=== PATIENT | female | born 1965 | race Caucasian/White ===

== ENCOUNTER 2022-09-13 08:00 | Outpatient (CLI) | payer OTHER, SELFPAY ==
--- NOTE | ~2022-09-13 | MM_ITS ---
EXAMINATION: [place] [facility] [place] HISTORY: Screening mammogram TECHNIQUE: Craniocaudal and mediolateral oblique 3-D tomosynthesis images were obtained and synthetic 2-D images were generated. CAD analysis was submitted and interpreted. COMPARISON: 02/26/2019, 07/11/2018 BREAST PARENCHYMAL COMPOSITION: There are scattered areas of fibroglandular density. FINDINGS: The breast implants have been removed. No suspicious mass, calcification, or architectural distortion are identified in either breast to suggest malignancy. There has been no suspicious interv al change. IMPRESSION: 1. No mammographic evidence of malignancy. 2. Recommend routine screening mammography in one year. BI-RADS Category 1: Negative Reviewed, dictated and finalized at location A. ERY HAND
== END 2022-09-13 08:01 | disposition home or self-care (01) ==
PROVIDERS: PCP Family Medicine; Visit Provider Obstetrics & Gynecology
DX: Z12.31 Encounter for screening mammogram for malignant neoplasm of breast (principal)
CPT/HCPCS: 77063; 77067

== ENCOUNTER 2023-12-04 07:51 | Day surgery (SDC) | payer OTHER, SELFPAY ==
[2023-11-19 11:08] VITALS: BMI 23.8
[2023-11-22 09:54] VITALS: BMI 23.4
--- NOTE | 2023-12-04 08:00 | P.PNAN_ITS ---
Anes - Initial Pre Proc Eval Procedure: Operation Date: 12/04/23 10:00 Proposed Procedures p Diagnostic Colonoscopy - Michael Hewitt MD Date/Time: 12/04/23 08:00 Surgeon: Michael Hewitt MD Pre Op Diagnosis: Family History of Colon Cancer Patient Data Age: 58 Gender: F Height: 1.73 m Weight: 70 kg Allergies Allergy/AdvReac Type Severity Reaction Status Date / Time No Known Allergies Allergy Verified 12/04/23 08:40 Home Medications Medication Instructions Recorded Confirmed Type levothyroxine 25 mcg tablet See Rx Instructions .Route 10/23/23 12/04/23 Rx .COMPLEX #90 tabs bupropion HCl 300 mg 24 hr tablet, 300 mg PO QAM #90 tabs 11/20/23 12/04/23 Rx extended release pramipexole 0.25 mg tablet See Rx Instructions .Route 11/20/23 12/04/23 Rx .COMPLEX #90 tabs Patient hx anesthesia problems: none Family hx anesthesia problems: none Results Review: All pre-operative results and documents have been reviewed as part of the pre- operative evaluation. [facility] Past Medical History Medical History (Updated 12/04/23 @ 08:01 by Rickey Benavides DO) Anxiety disorder, unspecified Hypothyroidism Family History Family History Father Mother No problems noted. Sibling No problems noted. 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[employer] Gender identity (if verbalized by the patient): Female Sexual Orientation (if Verbalized by the Patient): Straight or Heterosexual Spiritual care concerns: No Anes - Eval Final PreProcedure Day of Procedure 12/04/23 08:00 Patient weight: normal Heart: regular rate and rhythm Lungs: clear to auscultation and normal air movement Airway: Mallampati scale class II Neurological: alert and oriented Last oral intake: >/= 8 hours ASA classification: II Emergent: no Anesthetic plan: proceed Anesthesia type and monitoring: general GIVS and standard monitoring Results Review: All pre-operative results and documents have been reviewed as part of the pre- operative evaluation. Informed Consent: The patient's anesthetic plan and its attendant risks and benefits were discussed with the patient/family/POA. Questions were solicited and answers provided to the satisfaction of the patient/family/POA.
[2023-12-04 08:50] VITALS: BP 107/60; PULSE 76; RESP 16; TEMP 37.1; O2SAT 99; BMI 23.6
[2023-12-04] MEDS: LACTATED RINGERS 1,000 ML 150 ML IV CONT (09:06)
--- NOTE | 2023-12-04 09:14 | PM.HPGS ---
History of Present Illness History of Present Illness Consent: Risks, benefits, and alternatives have been discussed and questions answered. Patient agrees to proceed with procedure. Chief complaint: Neoplasia screening Narrative: Frances Peck is a 58 year old female presents for screening colonoscopy. Patient's current weight appetite and bowel movements are normal. Patient denies abdominal pain. She has had no bleeding. Family history noncontributory. Patient did have previous colonoscopy 10 years ago that was unremarkable. She presents today for surveillance colonoscopy. Review of Systems Review of Systems: Review of systems noncontributory. [facility] Past Medical History Medical History (Updated 12/04/23 @ 09:16 by Michael Hewitt MD) Anxiety disorder, unspecified Hypothyroidism Family History Family History Father Mother No problems noted. Sibling No problems noted. 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[employer] Gender identity (if verbalized by the patient): Female Sexual Orientation (if Verbalized by the Patient): Straight or Heterosexual Spiritual care concerns: No Meds Home Medications and Allergies Home Medications Medication Instructions Recorded Confirmed Type levothyroxine 25 mcg tablet See Rx Instructions .Route 10/23/23 12/04/23 Rx .COMPLEX #90 tabs bupropion HCl 300 mg 24 hr tablet, 300 mg PO QAM #90 tabs 11/20/23 12/04/23 Rx extended release pramipexole 0.25 mg tablet See Rx Instructions .Route 11/20/23 12/04/23 Rx .COMPLEX #90 tabs Allergies Allergy/AdvReac Type Severity Reaction Status Date / Time No Known Allergies Allergy Verified 12/04/23 08:40 Vital Signs Vital Signs - 24 hr 12/04/23 08:50 Temperature 98.8 F Pulse Rate 76 Respiratory Rate 16 Blood Pressure 107/60 Pulse Oximetry 99 Oxygen Delivery Room Air Exam Narrative: Physical exam reveals patient to be alert. Vital signs stable. HEENT is unremarkable. Patient is anicteric. Lungs are clear to auscultation and percussion. Heart is without murmur or extra sounds. Abdomen bowel sounds are present soft nontender with no organomegaly. Digital external rectal exam normal. Assessment and Plan Assessment and plan (1) Encounter for screening colonoscopy: Code(s): Z12.11 - Encounter for screening for malignant neoplasm of colon Status: Acute Assessment and Plan: Patient presents today for screening colonoscopy. She appears to be at average risk for colon polyps. Further recommendations may be given after endoscopy
[2023-12-04 10:15] VITALS: BP 91/68; PULSE 68; RESP 15; O2SAT 99
[2023-12-04 10:18] VITALS: BP 87/55; PULSE 70; RESP 16; O2SAT 100
[2023-12-04 10:28] VITALS: BP 102/68; PULSE 70; RESP 16; O2SAT 100
--- NOTE | 2023-12-04 13:20 | WPDANESPN ---
Anes - Prog Note Post-Op Date/Time: 12/04/23 13:20 Cardiovascular status: normal Respiratory status: normal Airway patency: baseline Mental status: baseline Post-Op hydration status: normal Vital Signs: Last Vital Signs Temp 37.1 C 12/04/23 08:50 Pulse 70 12/04/23 10:28 Resp 16 12/04/23 10:28 BP 102/68 12/04/23 10:28 Pulse Ox 100 12/04/23 10:28 O2 Del Method Room Air 12/04/23 10:28 Pain Score (VAS): 0 I/O: Intake & Output 12/03/23 12/04/23 12/04/23 23:59 07:59 15:59 Intake Total 500 Balance 500 Post-procedural complaints: none Patient Feedback: Patient satisfied with anesthetic care. Other Findings: Patient vital signs back to baseline. Patient denies nausea and vomiting. Patient's pain under control. Patient OK for discharge.
== END 2023-12-04 11:15 | disposition home or self-care (01) ==
PROVIDERS: PCP Family Medicine; Visit Provider Internal Medicine Gastroenterology
PROC: 0DJD8ZZ Inspection of Lower Intestinal Tract, Via Natural or Artificial Opening Endoscopic (ICD-10-PCS; CPT 45378; principal; 2023-12-04 10:00)
DX: Z12.11 Encounter for screening for malignant neoplasm of colon (principal); K64.8 Other hemorrhoids
CPT/HCPCS: 45378

== ENCOUNTER 2023-12-27 09:15 | Outpatient (CLI) | payer OTHER, SELFPAY ==
--- NOTE | ~2023-12-27 | MM_ITS ---
EXAMINATION: MM screening [facility] w jourdan HISTORY: Screening mammogram TECHNIQUE: Craniocaudal and mediolateral oblique 3-D tomosynthesis images were obtained and synthetic 2-D images were generated. CAD analysis was submitted and interpreted. COMPARISON: 09/13/2022 bilateral screening mammogram 02/26/2019 bilateral diagnostic mammogram BREAST PARENCHYMAL COMPOSITION: There are scattered areas of fibroglandular density. FINDINGS: There is no evidence of suspicious mass, calcification, or architectural distortion to suggest malignancy in either breast. There has been no suspicious interval change. IMPRESSION: 1. No mammographic evidence of malignancy. 2. Recommend routine screening mammography in one year. BI-RADS Category 1: Negative Reviewed, dictated and finalized at location A. MTDD
--- NOTE | ~2023-12-27 | DEXA_ITS ---
Bone Density Report Name: ERNESTO DE SOUZA Age: 58 Sex: Female Ethnicity: White Date of : 1965 Indication: postmenopausal; screening for osteoporosis; Referring Provider: DAYTON, PINKY Tellez Study: Bone densitometry was performed. Exam Date: December 27, 2023 Accession number: [id number] Bone Density: Region BMD T-score Z-score Classification AP Spine(L1-L4) 0.837 -1.9 -0.5 Osteopenia Femoral Neck (Left) 0.757 -0.8 0.5 Normal Total Hip (Left) 0.891 -0.4 0.5 Normal Femoral Neck (Right) 0.698 -1.4 -0.1 Osteopenia Total Hip (Right) 0.803 -1.1 -0.2 Osteopenia Total Hip Mean 0.847 -0.8 0.2 Normal World Health Organization criteria for BMD impression classify patients as: Normal (T-score at or above -1.0), Osteopenia (T-score between -1.0 and -2.5), or Osteoporosis (T-score at or below -2.5). 10-year Fracture Risk(1): Major Osteoporotic Fracture 7.7% Hip Fracture 0.6% Reported Risk Factors: [place] (), Neck BMD=0.698, BMI=24.7 (1) FRAX(R) Version 3.08. Fracture probability calculated for an untreated patient. Fracture probability may be lower if the patient has received treatment. Clinical Information Provided by Patient: Has used the following medications: Vitamin D Patient maximum height was 68 Menopause Age: 48 Does not regularly consume dairy products Drinks caffeinated beverages Onset of menses at age 15 Number of children 2 Impression: The patient has low bone mass, based on the Total Spine T-score. The patient has an estimated ten-year risk of hip fracture of 0.6% and an estimated ten-year risk of major fracture of 7.7%, based on the WHO FRAX algorithm. Discussion: BONE DENSITY IS LOW AT ONE OR MORE SKELETAL SITES. This patient's lowest T-score is low at one or more skeletal sites. It meets the World Health Organization's (WHO) criteria for ?low bone mass? (T-score between -1.0 and -2.5). The patient's 10-year risk of fracture as calculated by FRAX is less than the threshold where pharmacological therapy is recommended by the National Osteoporosis Foundation (NOF). However, all treatment decisions require clinical judgment and consideration of individual patient factors, including patient preferences, comorbidities, previous drug use, risk factors not captured in the FRAX model (e.g., frailty, falls, vitamin D deficiency, increased bone turnover, interval significant decline in bone density) and possible under or overestimation of fracture risk by FRAX. The patient should follow a healthful lifestyle (good nutrition with adequate calcium and vitamin D, and appropriate weight-bearing exercise). Follow-Up: Consider repeating this study in 2 to 3 years to reassess this patient's status, or sooner if there is some new clinical indication. Reported by: ANEUDY on 0
== END 2023-12-27 09:16 | disposition home or self-care (01) ==
PROVIDERS: PCP Family Medicine; Visit Provider Nurse Practitioner
DX: Z12.31 Encounter for screening mammogram for malignant neoplasm of breast (principal); Z78.0 Asymptomatic menopausal state
CPT/HCPCS: 77063; 77067; 77080

== ENCOUNTER 2024-10-17 14:57 | Emergency (ER) | payer OTHER, SELFPAY ==
[2024-10-17 15:14] VITALS: BP 116/53; PULSE 80; RESP 18; TEMP 36.4; O2SAT 100
--- NOTE | 2024-10-17 15:18 | ED.URI ---
HPI - URI/Sore Throat General Chief Complaint: Upper Respiratory Infection Stated Complaint: congestion / cough / bodyache Time Seen by Provider: 10/17/24 15:18 Source: patient Mode of arrival: ambulatory Limitations: no limitations History of Present Illness HPI Narrative: Frances is a 59-year-old female patient presenting to the clinic today with complaints of cough, sinus and chest congestion, body aches, chills times 10 days. She denies any known fever. No known sick contacts. States the cough is nonproductive at this time MD elicited complaint: cough and nasal congestion Related Data Allergies Allergy/AdvReac Type Severity Reaction Status Date / Time No Known Allergies Allergy Verified 10/17/24 15:22 Review of Systems Review of Systems: Pertinent positives per HPI. Patient denies any fever, rash, headache, visual changes, dizziness, shortness of breath, chest pain, palpitations, nausea, vomiting, diarrhea, constipation, abdominal pain, or any urinary issues. PMFSH Past Medical History Medical History Anxiety disorder, unspecified Hypothyroidism Family History Family History Father Mother No problems noted. Sibling No problems noted. 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 There is no relevant family history pertinent to the patient complaint. Exam Narrative: General: Well-developed, well nourished, in no apparent distress Head: Normocephalic, atraumatic Eyes: Pupils equally round and reactive to light bilaterally, EOM intact, sclera and conjunctive clear, no discharge, lids normal Ears: TMs intact and clear, ear canals clear, no drainage, grossly hearing normal. Nose: Nares patent, green nasal discharge, moderate inflammation, frontal sinus tenderness. Mouth: Oral pharynx without lesions or masses, good dentition, MMM. Neck: Supple, trachea midline, no enlargement of anterior or posterior cervical nodes, no thyroid masses or goiter palpable. Cardio: Regular rate and rhythm, s1 and s2 normal, no murmur appreciated. Resp: Lung sounds diminished in the bases, no rhonchi, rales, wheezing or rubs Course Course Emergency Course: Portions of this record may have been created with voice recognition software. Level of Care: Express Care Visit Vital Signs Vital signs: Vital Signs Temperature 36.4 C 10/17/24 15:14 Pulse Rate 80 10/17/24 15:14 Respiratory Rate 18 10/17/24 15:14 Blood Pressure 116/53 L 10/17/24 15:14 Pulse Oximetry 100 10/17/24 15:14 Oxygen Delivery Room Air 10/17/24 15:14 Temperature 36.4 C 10/17/24 15:14 Pulse Rate 80 10/17/24 15:14 Respiratory Rate 18 10/17/24 15:14 Blood Pressure 116/53 L 10/17/24 15:14 Pulse Oximetry 100 10/17/24 15:14 Oxygen Delivery Room Air 10/17/24 15:14 Vital signs reviewed MDM - URI/Sore Throat MDM Narrative Medical decision making narrative: At the time of visit patient is resting comfortably on the exam table. Patient appears to be nontoxic. Plan: I suspect patient has sinusitis/bronchitis. Prescription for azithromycin, albuterol inhaler, and prednisone was sent to the pharmacy. Supportive measures were discussed with the patient and they voiced understanding discharge instructions and agrees to treatment plan. Return precautions reviewed Differential Diagnosis Differential diagnosis: Likely upper respiratory infection, otitis media, sinusitis, viral infection, bronchitis, influenza, pharyngitis and other (COVID) Discharge Plan Discharge Clinical Impression: Sinobronchitis Patient Disposition: Home, Self-Care Condition: Stable Instructions: Antibiotic Form, Sinusitis (ED), Acute Bronchitis (ED) Additional Instructions: Take prescription medications only as prescribed-albuterol inhaler, prednisone, and azithromycin Increase fluids and stay well hydrated Tylenol/motrin for pain/fever Flonase and OTC antihistamines as directed Vicks vapor rub to open sinuses Sinus rinses for congestion Cepacol spray, cough drops, throat lozenges, warm tea with honey/lemon, gargle salt water to soothe throat BRAT diet for diarrhea Clear liquids x 24 hours then advance as tolerated for nausea/vomiting Go to the ED if you develop a worsening in your condition- high fever not controlled by Tylenol or Motrin, dehydration, weakness, lethargy, shortness of breath, or chest pain. Follow up with your PCP in 3-5 days if symptoms persist. Patient Language: Polish Prescriptions: New azithromycin 250 mg tablet See Rx Instructions .ROUTE .COMPLEX Qty: 6 0RF Rx Instructions: For 250 mg dose pack: take 500 mg today (day 1), then 250 mg for 4 days (days 2-5) prednisone 20 mg tablet 40 mg PO DAILY 5 Days Qty: 10 0RF albuterol sulfate 90 mcg/actuation HFA aerosol inhaler 2 puff inhalation Q4-6H PRN (Reason: shortness of breath or wheezing) 30 Days Qty: 8.5 0RF No Action levothyroxine 25 mcg tablet See Rx Instructions .ROUTE .COMPLEX Qty: 90 0RF Dose Instruction: TAKE 1 TABLET BY MOUTH EVERY DAY Rx Instructions: TAKE 1 TABLET BY MOUTH EVERY DAY pramipexole 0.25 mg tablet See Rx Instructions .ROUTE .COMPLEX Qty: 180 0RF Dose Instruction: TAKE 1 TO 2 TABLETS BY MOUTH AT BEDTIME Rx Instructions: TAKE 1 TO 2 TABLETS BY MOUTH AT BEDTIME bupropion HCl 300 mg tablet extended release 24 hr 300 mg PO QAM Qty: 90 0RF Follow-up/Referrals: Merlin Salinas MD [Primary Care Provider] - Time of Disposition: 15:27 Quality NIHSS Nursing Documentation ED NIHSS nursing documentation: reviewed/agree
--- OUTSIDE RECORDS SUMMARY | 2024-10-24 23:34 | XMS_ITS | Patient Health Record ---
Author Organization [facility] Address [address] [place] [address] Care Team Providers Care Dag Coater Name Role Phone Brad BRADLEY, Merlin Primary Care Provider Unavaila Deb Melendez Unavailable [phone] ZZ-Migration, Provider Unavailable Unavailab le Reason For Referral No Information Medications Medication SIG (Take, Route, Frequency, Duration) Notes Start Date End Date Status OLOPATADINE HYDROCHLORIDE 665 MCG/INH 2 SPRAY(S) INTRANASALLY BID, PRN for 30 DAY(S) *Please review for potential replacement for e-prescription and drug interaction check* 04/25/2018 Active Cetirizine HCl 10 MG 1 tab(s) orally once a day 04/24/2018 Active Olopatadine HCl 0.2 % 1 gtt in each affected eye once a day, PRN for 30 day(s) 05/01/2018 Active Fluticasone Propionate 50 MCG/ACT 2 spray(s) intranasally once a day Active PAZEO 0.7% 1 GTT IN EACH AFFECTED EYE ONCE A DAY for 30 DAY(S) *Please review for potential replacement for e-prescription and drug interaction check* 04/24/2018 Active FLUTICASONE NASAL 50 mcg/inh 2 spray(s) intranasally once a day Active CETIRIZINE HYDROCHLORIDE 10 mg 1 tab(s) orally once a day 04/24/2018 Active OLOPATADINE OPHTHALMIC 0.2% 1 gtt in each affected eye once a day, PRN for 30 day(s) 05/01/2018 Active PRAMIPEXOLE 0.25 mg 1 tab(s) orally once a day Active SYNTHROID 50 mcg (0.05 mg) 1 tab(s) orally once a day Active BUPROPION hydrobromide 522 mg/24 hours 1 tab(s) orally once a day (in the morning) Active CETIRIZINE 10 mg 1 tab(s) orally once a day Active OLOPATADINE HYDROCHLORIDE 665 MCG/INH 2 SPRAY(S) INTRANASALLY 2 TIMES A DAY for 30 DAY(S) *Please review for potential replacement for e-prescription and drug interaction check* 04/24/2018 Active Cetirizine HCl 10 MG 1 tab(s) orally once a day Active Pramipexole Dihydrochloride 0.25 MG 1 tab(s) orally once a day Active buPROPion HCl HYDROBROMIDE 522 MG/24 HOURS 1 TAB(S) ORALLY ONCE A DAY (IN THE MORNING) *Please review and pick correct strength-formulat ion from [employer] options. If intended option is not shown, discontinue and re-order from Quick Search* Active Synthroid 50 MCG 1 tab(s) orally once a day Active Social History Tobacco Use: Social History Observation Description Date Details (start date - stop date) Never Smoker NA - NA Smoking Smart Form: Question Answer Notes Are you a: never smoker Problems Problem Type SNOMED Code ICD Code Onset Dates Problem Status W/U Status Risk Notes Problem Chronic allergic conjunctivitis (70238498) Other chronic allergic conjunctivitis (H10.45) Active confirmed Problem Allergic rhinitis (00275783) Other allergic rhinitis (J30.89) Active confirmed Encounters Encounter Location Date Provider Diagnosis [facility] [place] [address] 03/28/2024 Provider CONCEPCIÓN-Deja Other chronic allergic conjunctivitis H10.45 and Other allergic rhinitis J30.89 Assessments Encounter Date Diagnosis (ICD Code) Assessment Notes Treatment Notes Treatment Clinical Notes Section Notes 03/28/2024 Other chronic allergic conjunctivitis (ICD-10 - H10.45) 03/28/2024 Other allergic rhinitis (ICD-10 - J30.89) Plan Of Treatment No Information Insurance Providers Payer Name Payer Address Payer Phone Subscriber Number Group Number Insured Name Patient Relationship to Insured Coverage Start Date Coverage End Date [facility] [id number] [place] [address] [id number] Frances Lloyd Self - patient is the insured Medical (General) History Medical History History ICD Code Hypothyroidism Restless Leg Syndrome Anxiety
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
--- OUTSIDE RECORDS SUMMARY | 2024-10-24 23:34 | XMS_ITS ---
Author Organization [facility] Address [address] [place] [address] Care Team Providers Care Alignment Mechanic Name Role Phone Brad BRADLEY, Merlin Primary Care Provider Unavaila Deb Melendez Unavailable [phone] [facility], Provider Unavailable Unavailab le [facility] Conversion Encounter Medications Medication SIG (Take, Route, Frequency, Duration) Notes Start Date End Date Status Olopatadine HCl 0.2 % 1 gtt in each affected eye once a day, PRN for 30 day(s) 05/01/2018 Active PAZEO 0.7% 1 GTT IN EACH AFFECTED EYE ONCE A DAY for 30 DAY(S) *Please review for potential replacement for e-prescription and drug interaction check* 04/24/2018 Active OLOPATADINE HYDROCHLORIDE 665 MCG/INH 2 SPRAY(S) INTRANASALLY 2 TIMES A DAY for 30 DAY(S) *Please review for potential replacement for e-prescription and drug interaction check* 04/24/2018 Active Pramipexole Dihydrochloride 0.25 MG 1 tab(s) orally once a day Active buPROPion HCl HYDROBROMIDE 522 MG/24 HOURS 1 TAB(S) ORALLY ONCE A DAY (IN THE MORNING) *Please review and pick correct strength-formulat ion from [employer] options. If intended option is not shown, discontinue and re-order from Quick Search* Active OLOPATADINE HYDROCHLORIDE 665 MCG/INH 2 SPRAY(S) INTRANASALLY BID, PRN for 30 DAY(S) *Please review for potential replacement for e-prescription and drug interaction check* 04/25/2018 Active Cetirizine HCl 10 MG 1 tab(s) orally once a day 04/24/2018 Active Fluticasone Propionate 50 MCG/ACT 2 spray(s) intranasally once a day Active Cetirizine HCl 10 MG 1 tab(s) orally once a day Active Synthroid 50 MCG 1 tab(s) orally once a day Active Encounters Encounter Location Date Provider Diagnosis [address] [address] 03/28/2024 Provider [facility] Other chronic allergic conjunctivitis H10.45 and Other allergic rhinitis J30.89 Assessments Encounter Date Diagnosis (ICD Code) Assessment Notes Treatment Notes Treatment Clinical Notes Section Notes 03/28/2024 Other chronic allergic conjunctivitis (ICD-10 - H10.45) 03/28/2024 Other allergic rhinitis (ICD-10 - J30.89) Plan Of Treatment Medication Medication Name Sig Start Date Stop Date Notes Olopatadine HCl 0.2 % 1 gtt in each affected eye once a day, PRN for 30 day(s) 05/01/2018 PAZEO 0.7% 1 GTT IN EACH AFFECTED EYE ONCE A DAY for 30 DAY(S) 04/24/2018 *Please review for potential replacement for e-prescription and drug interaction check* OLOPATADINE HYDROCHLORIDE 665 MCG/INH 2 SPRAY(S) INTRANASALLY 2 TIMES A DAY for 30 DAY(S) 04/24/2018 *Please review for potential replacement for e-prescription and drug interaction check* OLOPATADINE HYDROCHLORIDE 665 MCG/INH 2 SPRAY(S) INTRANASALLY BID, PRN for 30 DAY(S) 04/25/2018 *Please review for potential replacement for e-prescription and drug interaction check* Cetirizine HCl 10 MG 1 tab(s) orally onc e a day 04/24/2018 Fluticasone Propionate 50 MCG/ACT 2 spray(s) intranasally once a day Progress Notes * Leno PECKOB:1964 (59 yo F)Acc No.[id number]:03/28/2024 Patient:?SANDORRENETTA Frances Provider:?Provider Migration :1965???Age:58 Y???Sex:Female D ate:03/28/2024 Address:[address], [id number] Pcp:Merlin Salinas MD Subjective: * Chief Complaints: * ?[facility] * Medical History:? * Medications:?Taking Pramipex ole Dihydrochloride 0.25 MG Tablet 1 tab(s) orally once a day , Taking buPROPion HCl HYDROBROMIDE 522 MG/24 HOURS TABLET, EXTENDED RELEASE 1 TAB(S) ORALLY ONCE A DAY (IN THE MORNING) , Notes to Pharmacist: *Please review and pick correct strength-formulation from [facility] options. If intended option is not shown, discontinue and re-order from Quick Search*, Taking Synthroid 50 MCG Tablet 1 tab(s) orally once a day , Taking Cetirizine HCl 10 MG Tablet 1 tab(s) orally once a day Objective: * Vitals:? Assessment: * Assessment: 1.?Other allergic rhinitis - J30.89 (Primary)???2.?Other chronic allergic conjunctivitis - H10.45??? Plan: * Treatment: 2.?Other chronic allergic co njunctivitis? Refill PAZEO SOLUTION, 0.7%, 1 GTT, IN EACH AFFECTED EYE, ONCE A DAY, 30 DAY(S), 1, Refills 1, Notes to Pharmacist: *Please review for potential replacement for e-prescription and drug interaction check*.?? 3.?Others? Start OLOPATADINE HYDROCHLORIDE SPRAY, 665 MCG/INH, 2 SPRAY(S), INTRANASALLY, 2 TIMES A DAY, 30 DAY(S), 1, Refills 1, Notes to Pharmacist: *Please review for potential replacement for e-prescription and drug interaction check*;?Start Olopatadine HCl Solution, 0.2 %, 1 gtt, in each affected eye, once a day, PRN, 30 day(s), 1, Refills 2.?? * Billing Information: * Visit Code:? * Procedure Codes:? * Electronic signature of Greyson BEEBE-Migration on 10/24/2024 at 11:34 PM [employer] Sign off status: Pending * Provider:?Provider Migration Date:?03/28 Generated for Siva henriquez/Mary/eTransmitting on:?10/24/2024 11:34 PM [employer]
--- OUTSIDE RECORDS SUMMARY | 2024-10-24 23:35 | XMS_ITS | Encounter Summary ---
Author Organization [facility] Address [address] [address] Care Team Providers Care Overlock Waistline Joiner Name Role Phone Merlin Salinas MD Primary Care Provider [phone] Reason for Visit * Reason Comments Cough Pt is c/o cough tammy estion, sore throat, DSA, fatigue, body aches started about 4 days ago. Encounter Details Date Type Department Care Team (Late st Contact Info) Description 10/03/2022 7:15 PM SOAPSTONER Office Visit [facility] Outpatient Center [address] [id number] Martina Reyna NP [address] [place] [address] [address] [place] [address] COVID-19 (Primary Dx) Social History Tobacco Use Types Packs/Day Years Used Date Smoking Tobacco: Never Assessed Comments Unknown Sex and Gender Information Value Date Recorded Sex Assigned at Not on file Legal Sex Female 6:34 PM SOAPSTONER Gender Identity Not on file Sexual Orientation Not on file documented as of this encounter Last Filed Vital Signs Vital Sign Reading Time Taken Comments Blood Pressure 118/70 10/03/2022 7:13 PM SOAPSTONER Pulse 98 10/03/2022 7:13 PM SOAPSTONER Temperature 36.8 ??C (98.2 ??F) 10/03/2022 7:13 PM CS T Respiratory Rate - - Oxygen Saturation 99% 10/03/2022 7:13 PM SOAPSTONER Inhaled Oxygen Concentration - - Weight 73.2 kg (161 lb 6.4 oz) 10/03/2022 7:13 P M SOAPSTONER Height 172.7 cm (5' 8 ) 10/03/2022 7:13 PM SOAPSTONER Body Mass Index 24.54 10/03/2022 7:13 PM SOAPSTONER documented in this encounter Patient Instructions * Patient Instructions* Martina Reyna NP - 10/03/2022 7:15 PM SOAPSTONER Results for orders placed or performed in visit on 10/03/22 POC Influenza A/B, COVID-19 antigen Result Value Ref Range Inflenza A Ag, POC Negative Negative Influenza B Ag, POC Negative Negative COVID-19 Ag POC Positive (A) Presumptive Negative, Invalid Self-care: Rest as much as possible. Slowly start to do more each day. Take the medicines recommended by your doctor for fever, body aches, cough, or headaches. (Tylenol or Ibuprofen for aches/pains/fever as needed) (Antihistamines like Claritin or Benadryl as needed for drainage) (Delsym and cough drops/throat lozenges as needed for cough) Drink more liquids as directed to help thin and loosen mucus so it is easier to cough up. Liquids such as water, fruit juice, and broth also help keep you hydrated. Soothe a sore throat by gargling with warm salt water. Make salt water by dissolving ?? teaspoon salt in 1 cup warm water (8 ounces). Older children and adults can also use throat lozenges, ice chips, or sore throat spray. Use a humidifier or vaporizer to increase air moisture in your home. This may make it easier to breathe and help decrease coughing. Use saline nasal drops as directed to relieve congestion. Apply petroleum-based jelly around the outside of nostrils to decrease irritation from blowing yournose. DO NOT smoke or vape. Nicotine and other chemicals in cigarettes and cigars can make your symptoms worse. Monitor your symptoms: Seek medical attention right away if your symptoms get worse, such as if you are having difficulty breathing, shortness of breath, new confusion or inability to arouse, or bluish lips or face. If you have a pulse ox monitor at home, monitor your oxygen saturations with this device. If you find your Oxygen Saturation is falling 92% or below please notify your PCP right away or seek medical attention. Or if you experience fever uncontrolled with antipyretics, shortness of breath, chest discomfort, uncontrolled n/v/d If you have a medical emergency, call 911 and notify the EMS personnel that you have or are being evaluated for COVID-19. Put on a facemask before emergency medical services arrive -briefly discussed monoclonal antibody therapy, and antiviral therapy, call your PCP for more information and to see if you meet criteria for treatment. [facility] Information: While waiting for your COVID-19 test result or if your COVID-19 test is positive: ISOLATE: Stay home except to get medical care! Separate yourself from other people and pets in [facility]: Do not go to work, school, or public areas, such as stores or social gatherings. Do not use public transportation. If available, stay in a separate bedroom and use a separate bathroom. Ask others to care for your pets. (If possible) Wear a facemask when around other people or pets. Cover your mouth and nose with a tissue when you cough or sneeze. If a tissue is not available, cough or sneeze into your upper sleeve (not your hands). Throw tissues away in trash-can that has a bag in it. Empty your trash daily. Always wash your hands after you throw away the tissue or garbage. If you test Positive for COVID-19 Given what we currently know about COVID-19 and the Omicron variant, [facility] is shortening the recommended time for isolation from 10 days for people with COVID-19 to 5 days, if asymptomatic, followed by5 days of wearing a mask when around others. The change is motivated by science demonstrating that the majority of SARS-CoV-2 transmission occurs early in the course of illness, generally in the 1-2 days prior to onset of symptoms and the 2-3 days after. Therefore, people who test positive should isolate for 5 days and, if asymptomatic at that time, they may leave isolation if they can continue to mask for 5 days to minimize the risk of infecting others. Quarantine for those exposed to COVID-19 Additionally, [facility] is updating the recommended quarantine period for those exposed to COVID-19. For people who are unvaccinated or are more than six months out from their second mRNA dose (or more than 2 months after the J&J vaccine) and not yet boosted, CDC now recommends quarantine for 5 days followed by strict mask use for an additional 5 days. Alternatively, if a 5-day quarantine is not feasible, it is imperative that an exposed person wear a well-fitting mask at all times when around others for 10 days after exposure. Individuals who have received their booster shot do not need to quarantine following an exposure, but should wear a mask for 10 days after the exposure. For all those exposed, best practice would also include a test for SARS-CoV-2 at day 5 after exposure. If symptomsoccur, individuals should immediately quarantine until a negative test confirms symptoms are not attributable to COVID-19. Isolation relates to behavior after a confirmed infection. Isolation for 5 days followed by wearinga well-fitting mask will minimize the risk of spreading the virus to others. Quarantine refers to the time following exposure to the virus or close contact with someone known to have COVID-19. Both updates come as the Omicron variant continues to spread throughout the [place] and reflects the current science on when and for how long a person is maximally infectious. If You Were Exposed to Someone with COVID-19 (Quarantine) If you: Have been boosted OR Completed the primary series of Pfizer or Moderna vaccine within the last 6 months OR Completed the primary series of J&J vaccine within the last 2 months Wear a mask around others for 10 days. Test on day 5, if possible. If you develop symptoms get a test and stay home. If you: Completed the primary series of Pfizer or Moderna vaccine over 6 months ago and are not boosted OR Completed the primary series of J&J over 2 months ago and are not boosted OR Are unvaccinated Stay home for 5 days. After that continue to wear a mask around others for 5 additional days. If you can???t quarantine you must wear a mask for 10 days. Test on day 5 if possible. If you develop symptoms get a test and stay home If You Test Positive for COVID-19 (Isolate) Everyone, regardless of vaccination status. Stay home for 5 days. If you have no symptoms or your symptoms are resolving after 5 days, you can leave your house. Continue to wear a mask around others for 5 additional days. If you have a fever, continue to stay home until your fever resolves. STONER documented in this encounter Ordered Prescriptions Prescription Sig Dispense Quantity Refills Last Filled Start Date End Date penicillin v potassium (VEETID) 500 mg tabletIndications: COVID-19 Take 1 tablet (500 mg total) by mouth 2 (two) times a day for 10 days 20 tablet 10/03/2022 10/13/2022 documented in this encounter Progress Notes * Martina Reyna NP - 10/03/2022 7:15 PM CST Images from the original note were not included. Subjective/Objective Patient ID: Frances Moctezuma is a 57 y.o. female. Chief Complaint Cough (Pt is c/o cough congestion, sore throat, DAS, fatigue, body aches started about 4 days ago. ) Pt presents to [facility] Pt is vaccinated for covid No flu vaccine. URI This is a new problem. Episode onset: 4 days ago. Associated symptoms include congestion, headaches, rhinorrhea and a sore throat. Pertinent negatives include no abdominal pain, chest pain, coughing,diarrhea, ear pain, nausea, neck pain, rash, shortness of breath, sinus pain, sneezing, vomiting orwheezing. Review of Systems Constitutional: Positive for fatigue. Negative for appetite change, chills, diaphoresis and fever. HENT: Positive for congestion, rhinorrhea and sore throat. Negative for ear discharge, ear pain, postnasal drip, sinus pressure, sinus pain, sneezing and trouble swallowing. Respiratory: Negative for cough, chest tightness, shortness of breath and wheezing. Cardiovascular: Negative for chest pain. Gastrointestinal: Negative for abdominal pain, diarrhea, nausea and vomiting. Musculoskeletal: Positive for myalgias. Negative for neck pain and neck stiffness. Skin: Negative for rash. Neurological: Positive for headaches. Negative for dizziness. Hematological: Negative for adenopathy. Physical Exam Vitals and nursing note reviewed. Constitutional: General: She is awake. She is not in acute distress. Appearance: Normal appearance. HENT: Head: Normocephalic and atraumatic. Right Ear: Tympanic membrane and ear canal normal. Left Ear: Tympanic membrane and ear canal normal. Nose: No congestion or rhinorrhea. Right Sinus: No maxillary sinus tenderness or frontal sinus tenderness. Left Sinus: No maxillary sinus tenderness or frontal sinus tenderness. Mouth/Throat: Lips: [place]. Mouth: Mucous membranes are moist. Tongue: Tongue does not deviate from midline. Pharynx: Uvula midline. No pharyngeal swelling, oropharyngeal exudate, posterior oropharyngeal erythema or uvula swelling. Tonsils: No tonsillar exudate or tonsillar abscesses. Eyes: General: Lids are normal. Pupils: Pupils are equal, round, and reactive to light. Cardiovascular: Rate and Rhythm: Normal rate and regular rhythm. Pulses: Normal pulses. Heart sounds: Normal heart sounds. Pulmonary: Effort: Pulmonary effort is normal. No respiratory distress. Breath sounds: Normal breath sounds. No decreased breath sounds, wheezing, rhonchi or rales. Musculoskeletal: Cervical back: Full passive range of motion without pain, normal range of motion and neck supple. Lymphadenopathy: Cervical: No cervical adenopathy. Skin: General: Skin is warm and dry. Neurological: Mental Status: She is alert and oriented to person, place, and time. Gait: Gait normal. Psychiatric: Behavior: Behavior is cooperative. Vitals: 10/03/22 1913 BP: 118/70 BP Location: Left arm Patient Position: Sitting Pulse: 98 Temp: 36.8 ??C (98.2 ??F) TempSrc: Oral SpO2: 99% Weight: 73.2 kg (161 lb 6.4 oz) Height: 172.7 cm (5' 8 ) No results found. No past medical history on file. Current Outpatient Medications: levothyroxine (SYNTHROID) 25 mcg tablet, Take 25 mcg by mouth daily, Disp: , Rfl: penicillin v potassium (VEETID) 500 mg tablet, Take 1 tablet (500 mg total) by mouth 2 (two) times a day for 10 days, Disp: 20 tablet, Rfl: 0 No Known Allergies Social History Tobacco Use Smoking status: Not on file Smokeless tobacco: Not on file Substance and Sexual Activity Drug use: Not on file Sexual activity: Not on file Alcohol Use: Not on file No past surgical history on file. Assessment/Plan Diagnoses and all orders for this visit: COVID-19 (Primary) - POC Influenza A/B, COVID-19 antigen - POCT rapid strep A - penicillin v potassium (VEETID) 500 mg tablet; Take 1 tablet (500 mg total) by mouth 2 (two) times a day for 10 days Recent Results (from the past 4 hour(s)) POC Influenza A/B, COVID-19 antigen Collection Time: 10/03/22 7:23 PM Result Value Ref Range Inflenza A Ag, POC Negative Negative Influenza B Ag, POC Negative Negative COVID-19 Ag POC Positive (A) Presumptive Negative, Invalid POCT rapid strep A Collection Time: 10/03/22 7:40 PM Result Value Ref Range Rapid Strep A, POC Positive Patient Education: Self-care: Rest as much as possible. Slowly start to do more each day. Take the medicines recommended by your doctor for fever, body aches, cough, or headaches. (Tylenol or Ibuprofen for aches/pains/fever as needed) (Antihistamines like Claritin or Benadryl as needed for drainage) (Delsym and cough drops/throat lozenges as needed for cough) Drink more liquids as directed to help thin and loosen mucus so it is easier to cough up. Liquids such as water, fruit juice, and broth also help keep you hydrated. Soothe a sore throat by gargling with warm salt water. Make salt water by dissolving ?? teaspoon salt in 1 cup warm water (8 ounces). Older children and adults can also use throat lozenges, ice chips, or sore throat spray. Use a humidifier or vaporizer to increase air moisture in your home. This may make it easier to breathe and help decrease coughing. Use saline nasal drops as directed to relieve congestion. Apply petroleum-based jelly around the outside of nostrils to decrease irritation from blowing yournose. DO NOT smoke or vape. Nicotine and other chemicals in cigarettes and cigars can make your symptoms worse. Monitor your symptoms: Seek medical attention right away if your symptoms get worse, such as if you are having difficulty breathing, shortness of breath, new confusion or inability to arouse, or bluish lips or face. If you have a pulse ox monitor at home, monitor your oxygen saturations with this device. If you find your Oxygen Saturation is falling 92% or below please notify your PCP right away or seek medical attention. Or if you experience fever uncontrolled with antipyretics, shortness of breath, chest discomfort, uncontrolled n/v/d If you have a medical emergency, call 911 and notify the EMS personnel that you have or are being evaluated for COVID-19. Put on a facemask before emergency medical services arrive -briefly discussed monoclonal antibody therapy, and antiviral therapy, call your PCP for more information and to see if you meet criteria for treatment. CDC Information: While waiting for your COVID-19 test result or if your COVID-19 test is positive: ISOLATE: Stay home except to get medical care! Separate yourself from other people and pets in yourhome: Do not go to work, school, or public areas, such as stores or social gatherings. Do not use public transportation. If available, stay in a separate bedroom and use a separate bathroom. Ask others to care for your pets. (If possible) Wear a facemask when around other people or pets. Cover your mouth and nose with a tissue when you cough or sneeze. If a tissue is not available, cough or sneeze into your upper sleeve (not your hands). Throw tissues away in trash-can that has a bag in it. Empty your trash daily. Always wash your hands after you throw away the tissue or garbage. If you test Positive for COVID-19 Given what we currently know about COVID-19 and the Omicron variant, CDC is shortening the recommended time for isolation from 10 days for people with COVID-19 to 5 days, if asymptomatic, followed by5 days of wearing a mask when around others. The change is motivated by science demonstrating that the majority of SARS-CoV-2 transmission occurs early in the course of illness, generally in the 1-2 days prior to onset of symptoms and the 2-3 days after. Therefore, people who test positive should isolate for 5 days and, if asymptomatic at that time, they may leave isolation if they can continue to mask for 5 days to minimize the risk of infecting others. Quarantine for those exposed to COVID-19 Additionally, CDC is updating the recommended quarantine period for those exposed to COVID-19. For people who are unvaccinated or are more than six months out from their second mRNA dose (or more than 2 months after the J&J vaccine) and not yet boosted, CDC now recommends quarantine for 5 days followed by strict mask use for an additional 5 days. Alternatively, if a 5-day quarantine is not feasible, it is imperative that an exposed person wear a well-fitting mask at all times when around others for 10 days after exposure. Individuals who have received their booster shot do not need to quarantine following an exposure, but should wear a mask for 10 days after the exposure. For all those exposed, best practice would also include a test for SARS-CoV-2 at day 5 after exposure. If symptomsoccur, individuals should immediately quarantine until a negative test confirms symptoms are not attributable to COVID-19. Isolation relates to behavior after a confirmed infection. Isolation for 5 days followed by wearinga well-fitting mask will minimize the risk of spreading the virus to others. Quarantine refers to the time following exposure to the virus or close contact with someone known to have COVID-19. Both updates come as the Omicron variant continues to spread throughout the [place] and reflects the current science on when and for how long a person is maximally infectious. If You Were Exposed to Someone with COVID-19 (Quarantine) If you: Have been boosted OR Completed the primary series of Pfizer or Moderna vaccine within the last 6 months OR Completed the primary series of J&J vaccine within the last 2 months Wear a mask around others for 10 days. Test on day 5, if possible. If you develop symptoms get a test and stay home. If you: Completed the primary series of Pfizer or Moderna vaccine over 6 months ago and are not boosted OR Completed the primary series of J&J over 2 months ago and are not boosted OR Are unvaccinated Stay home for 5 days. After that continue to wear a mask around others for 5 additional days. If you can???t quarantine you must wear a mask for 10 days. Test on day 5 if possible. If you develop symptoms get a test and stay home If You Test Positive for COVID-19 (Isolate) Everyone, regardless of vaccination status. Stay home for 5 days. If you have no symptoms or your symptoms are resolving after 5 days, you can leave your house. Continue to wear a mask around others for 5 additional days. If you have a fever, continue to stay home until your fever resolves. Disposition Treatment plan including expectations, follow up, and return precautions discussed with patient/parent, verbalizes understanding. Medication dosage, use, and potential adverse reactions discussed with patient/parent. Advised to follow up with PCP if symptoms do not resolve as expected or sooner if condition worsens. Signs/symptoms warranting ER evaluation reviewed. Patient and/or guardian was given an opportunity to ask questions, questions answered. Martina Reyna NP Cosigned by Yaya Zee MD at 10/03/2022 10:19 PM SOAPSTONER STONER STONER documented in this encounter Plan of Treatment Not on file documented as of this encounter Procedures Procedure Name Priority Date/Time Associated Diagnosis Comments POCT RAPID STREP Routine 10/03/2022 7:40 PM SOAPSTONER COVID-19 POC INFLUENZA A/B, COVID-19 ANTIGEN Routine 10/03/2022 7:23 PM SOAPSTONER COVID-19 documented in this encounter Results * POCT rapid strep A (10/03/2022 7:40 PM SOAPSTONER) Rapid Strep A, POC Positive Swab 10/03/2022 7:40 PM SOAPSTONER Martina Reyna DENTAL LABORATORY WORKER POINT OF CARE TEST ORDERABLES F inal Result * (ABNORMAL) POC Influenza A/B, COVID-19 antigen (10/03/2022 7:23 PM SOAPSTONER) Influenza A Ag, POC Negative Negative [facility] Influenza B Ag, POC Negative Negative [facility] COVID-19 Ag POC Positive(A) Presumptive Negative, Invalid [facility] Nasal 10/03/2022 7:23 PM SOAPSTONER Martina Reyna DENTAL LABORATORY WORKER POINT OF CARE TEST ORDERABLES F inal Result [facility] [address] [place] [address] documented in this encounter Visit Diagnoses Diagnosis COVID-19- Primary documented in this encounter Historical Medications * This list may reflect changes made after this encounter. levothyroxine (SYNTHROID) 25 mcg tablet Take 25 mcg by mouth daily 08/17/2022 added in this encounter Additional Health Concerns Infection Onset Date Last Indicated Resolved Time COVID: Suspected 10/03/2022 10/03/2022 10/03/2022 7:23 PM SOAPSTONER COVID19 10/03/2022 10/03/2022 10/13/2022 3:05 AM SOAPSTONER documented as of this encounter Care Teams Overlock Waistline Joiner Relationship Specialty Start Date End Date Merlin Salinas MD PCP - General Family Medicine 10/03/22 documented as of this encounter
--- OUTSIDE RECORDS SUMMARY | 2024-10-24 23:35 | XMS_ITS | Referral Summary ---
Author Organization [facility] [address] Address [address] [place] [id number] Care Team Providers Care Banquet Waiter/Waitress Name Role Phone Merlin Salinas MD Primary Care Provider [phone] Allergies No known active allergies Medications levothyroxine (SYNTHROID) 25 mcg tablet Take 25 mcg by mouth daily 08/17/2022 Active Active Problems No known active problems Social History Tobacco Use Types Packs/Day Years Used Date Smoking Tobacco: Never Assessed Comments Unknown Sex and Gender Information Value Date Recorded Sex Assigned at Not on file Legal Sex Female 6:34 PM ASSISTED LIVING NURSING DIRECTOR Gender Identity Not on file Sexual Orientation Not on file Last Filed Vital Signs Vital Sign Reading Time Taken Comments Blood Pressure 118/70 10/03/2022 7:13 PM ASSISTED LIVING NURSING DIRECTOR Pulse 98 10/03/2022 7:13 PM ASSISTED LIVING NURSING DIRECTOR Temperature 36.8 ??C (98.2 ??F) 10/03/2022 7:13 PM CS T Respiratory Rate - - Oxygen Saturation 99% 10/03/2022 7:13 PM ASSISTED LIVING NURSING DIRECTOR Inhaled Oxygen Concentration - - Weight 73.2 kg (161 lb 6.4 oz) 10/03/2022 7:13 P M ASSISTED LIVING NURSING DIRECTOR Height 172.7 cm (5' 8 ) 10/03/2022 7:13 PM ASSISTED LIVING NURSING DIRECTOR Body Mass Index 24.54 10/03/2022 7:13 PM ASSISTED LIVING NURSING DIRECTOR Plan of Treatment Not on file Insurance [facility] HMO/PPO Address: [facility] [id number] [place] [phone] Care Teams Banquet Waiter/Waitress Relationship Specialty Start Date End Date Merlin Salinas MD PCP - General Family Medicine 10/03/22
--- OUTSIDE RECORDS SUMMARY | 2024-10-24 23:35 | XMS_ITS | Encounter Summary ---
[facility] Organization [facility] Address [address] [place] [address] Care Team Providers Care Vp Of Customer Experience Strategy Name Role Phone Unavailable Primary Care Provider Unavailabl e Encounter Details Date Type Department Care Team (Late st Contact Info) Description 03/24/2019 Chart Note [facility] Outpatient Care Management - [place] [address], Fourth Floor [place], [place] [id number] Yulisa Hou RN Social History Tobacco Use Types Packs/Day Years Used Date Smoking Tobacco: Never Assessed Sex and Gender Information Value Date Recorded Sex Assigned at Not on file Gender Identity Not on file Sexual Orientation Not on file documented as of this encounter Progress Notes * Yulisa Hou RN - 03/24/2019 1:20 PM CDT Chart review from [facility] report to medical case manager following [employer] patients. [facility] records after ECG. Case management has no plans to follow this patient at this time but available if needed. Ana Hou RN Case Manager [facility] Care Management documented in this encounter Plan of Treatment Not on file documented as of this encounter Visit Diagnoses Not on filedocumented in this encounter
--- OUTSIDE RECORDS SUMMARY | 2024-10-24 23:35 | XMS_ITS | Clinical Summary ---
Author Organization [facility] Address [address] [place]: Epic Prelude ADT [place] [address] Care Team Providers Care Book Packer Name Role Phone Unavailable Primary Care Provider Unavailabl e Social History Tobacco Use Types Packs/Day Years Used Date Smoking Tobacco: Never Assessed Sex and Gender Information Value Date Recorded Sex Assigned at Not on file Gender Identity Not on file Sexual Orientation Not on file Plan of Treatment Health Maintenance Due Date Last Done Comments DTAP/TDAP/TD VACCINES (1 - Tdap) 1982 CERVICAL CANCER SCREENING 1993 BREAST CANCER SCREENING 2003 COLORECTAL SCREENING 2008 Colorectal Cancer Screening 2008 FIT-DNA Q 3 years 2008 FIT/FOBT Q 1 year 2008 Flex Sig/CT Colonography Q 5 years 2008 ZOSTER VACCINE (1 of 2) 2013 INFLUENZA VACCINE (#1) 2024 RSV VACCINE (60+ or ) (1 - 1-dose 75+ series) 2038 PNEUMOCOCCAL VACCINE 0-64 YEARS Aged Out No longer eligible based on patient's age to complete this topic
--- OUTSIDE RECORDS SUMMARY | 2024-10-24 23:35 | XMS_ITS | Encounter Summary ---
Author Organization [facility] Address [address] [place] [address] Care Team Providers Care Fast Food Manager Name Role Phone Merlin Salinas MD Primary Care Provider [phone] Reason for Visit * Reason Onset Date Comments Covid-19 Home Monitoring 10/04/2022 Enrollm ent call day 1 Encounter Details Date Type Department Care Team (Late st Contact Info) Description 10/04/[address] [facility] Accountable Care Organization [address] [place] [id number] Yady Cummins MA [address] [place] [address] [address] [place] [address] Covid-19 Home Monitoring (Enrollment call day 1 ) Social History Tobacco Use Types Packs/Day Years Used Date Smoking Tobacco: Never Assessed Comments Unknown Sex and Gender Information Value Date Recorded Sex Assigned at Not on file Legal Sex Female 6:34 PM REHABILITATION LIAISON Gender Identity Not on file Sexual Orientation Not on file documented as of this encounter Miscellaneous Notes * Telephone Encounter - Yady Cummins MA - 10/04/2022 1:34 PM CST This patient was identified as a candidate for the [facility]/ COVID home monitoring program. The patient was contacted via phone for enrollment in the program. The patient has declined to participate in the automated MyChart Golf Course Assistant Program, but has verbally agreed to the Phone Only Home Monitoring Program, which includes being contacted for a daily phone assessment by a [facility]/ staff member. The patient was informed that members of the healthcare team will contact them depending on the symptoms that they report. This call could come from a variety of phone numbers depending on which member of the healthcare team is contacting the patient, and the patient should be prepared to answer calls from a variety of phone numbers. If the patient is unable to be reached for 3 days, they will be disenrolled from the program. Patient is aware that we will try and reach them at every available phone number, including HIPAA contacts. After review, the patient declined to participate. The ???COVID19 Home Monitoring?? order was not placed to enroll the patient in the phone only version of the program. BILITATION LIAISON documented in this encounter Plan of Treatment Not on file documented as of this encounter Visit Diagnoses Not on filedocumented in this encounter Additional Health Concerns Infection Onset Date Last Indicated Resolved Time COVID19 10/03/2022 10/03/2022 10/13/2022 3:05 AM REHABILITATION LIAISON documented as of this encounter Care Teams Fast Food Manager Relationship Specialty Start Date End Date Merlin Salinas MD PCP - General Family Medicine 10/03/22 documented as of this encounter
--- OUTSIDE RECORDS SUMMARY | 2024-10-24 23:35 | XMS_ITS | Clinical Summary ---
Author Organization [facility] [address] Address [address] [place] [id number] Care Team Providers Care Tag Stringer Name Role Phone Merlin Salinas MD Primary Care Provider [phone] Allergies No known active allergies Medications levothyroxine (SYNTHROID) 25 mcg tablet Take 25 mcg by mouth daily 08/17/2022 Active Active Problems No known active problems Social History Tobacco Use Types Packs/Day Years Used Date Smoking Tobacco: Never Assessed Comments Unknown Sex and Gender Information Value Date Recorded Sex Assigned at Not on file Legal Sex Female 6:34 PM ANNEALING FURNACE TENDER Gender Identity Not on file Sexual Orientation Not on file Obstetrics History Last Filed Vital Signs Vital Sign Reading Time Taken Comments Blood Pressure 118/70 10/03/2022 7:13 PM ANNEALING FURNACE TENDER Pulse 98 10/03/2022 7:13 PM ANNEALING FURNACE TENDER Temperature 36.8 ??C (98.2 ??F) 10/03/2022 7:13 PM CS T Respiratory Rate - - Oxygen Saturation 99% 10/03/2022 7:13 PM ANNEALING FURNACE TENDER Inhaled Oxygen Concentration - - Weight 73.2 kg (161 lb 6.4 oz) 10/03/2022 7:13 P M ANNEALING FURNACE TENDER Height 172.7 cm (5' 8 ) 10/03/2022 7:13 PM ANNEALING FURNACE TENDER Body Mass Index 24.54 10/03/2022 7:13 PM ANNEALING FURNACE TENDER Plan of Treatment Health Maintenance Due Date Last Done Comments Breast Cancer Screening-Mammogram 1963 Cervical Cancer Screening 1963 Colon Cancer Screening-Colonoscopy 1963 Depression Screening 1963 Hepatitis C Screening 1963 DTaP/Tdap/Td Vaccine (1 - Tdap) 1974 Hepatitis B Screening 1981 Regular Well Visit/Exam 18-64 1981 Zoster Vaccine (1 of 2) 2013 Influenza Vaccine (#1) 2024 Pneumococcal vaccine <65 Aged Out No longer eligible based on patient's age to complete this topic Insurance [facility] Care Teams Tag Stringer Relationship Specialty Start Date End Date Merlin Salinas MD PCP - General Family Medicine 10/03/22
== END 2024-10-17 15:32 | disposition home or self-care (01) ==
PROVIDERS: Emergency Provider Nurse Practitioner Family; PCP Family Medicine
DX: J40 Bronchitis, not specified as acute or chronic (principal); E03.9 Hypothyroidism, unspecified
CPT/HCPCS: 99213; G0463